=== PATIENT | female | born 1995 | race Caucasian/White ===

== ENCOUNTER 2019-08-21 13:48 | Emergency (ER) | payer OTHER, SELFPAY ==
[2019-08-21 14:00] VITALS: BP 110/67; PULSE 66; RESP 18; TEMP 37.1; O2SAT 98
--- NOTE | 2019-08-21 14:01 | ED.SKABFB ---
HPI - Skin/Abscess/Foreign Bdy General Chief complaint: Skin/Abscess/Foreign Body Stated complaint: ingrown fingernail infection Time Seen by Provider: 08/21/19 14:01 Source: patient Mode of arrival: ambulatory Limitations: no limitations History of Present Illness HPI narrative: Kaitlynn Washington is a 24 yo female with no PMH who comes to express care with pain and swelling around nail of R middle finger. Bites nails, has been swollen and painful x 2 days.Pain 08/28 Related Data Home Medications Medication Instructions Recorded Confirmed hydrocodone-acetaminophen 1 tablet PO BID 08/21/19 08/21/19 Allergies Allergy/AdvReac Type Severity Reaction Status Date / Time hydromorphone AdvReac Intermediate SEVERE Verified 08/21/19 14:07 NAUSEA AND VOMITING cephalexin AdvReac Mild Nausea and Verified 08/21/19 14:07 Vomiting Review of Systems Review of Systems: Narrative: CONSTITUTIONAL: Denies fever, chills, sweats. EYES: Denies visual changes, redness, discharge. ENT: Denies rhinorrhea, congestion, sore throat, otalgia. CARDIOVASCULAR: Denies chest pain, palpitations, edema. RESPIRATORY: Denies dyspnea, wheezing, cough GASTROINTESTINAL: Denies abdominal pain, nausea, vomiting, diarrhea. GENITOURINARY: Denies dysuria, hematuria, abnormal discharge SKIN: Denies rash or itching. swelling and pain in R middle finger NEUROLOGIC: Denies numbness, or focal weakness. PSYCHIATRIC: Denies anxiety or depression. PMFSH Family History Family History (Updated 08/21/19 @ 14:06 by Angeli Riggs CNP) Other No acute medical problems Social History Social History (Updated 08/21/19 @ 14:25 by Angeli Riggs CNP) Smoking status: Never smoker Alcohol intake: current Gender identity (if verbalized by the patient): Female Comments At time of signature, I agree with nursing past medical, surgical, social and family history. There is no relevant family history pertinent to the presenting complaint. Exam Narrative: Exam Narrative: GENERAL: This is a well-nourished, well-developed patient, in mild distress. HEAD: normocephalic, atraumatic. EYES: Sclera clear/white. Vision is grossly intact. EARS: External ears normal. Hearing grossly intact. NOSE: External nose normal without nasal discharge, nares without redness, no rhinorrhea. THROAT: Mucous membranes moist, posterior pharynx NECK: Neck supple, non-tender CARDIOVASCULAR: Regular rate and rhythm without murmurs, gallops, or rubs. RESPIRATORY: Clear to auscultation. Breath sounds equal bilaterally. No wheezes, rales, or rhonchi. GASTROINTESTINAL: Abdomen soft, non-tender, SKIN: warm, intact with no suspicious lesions or rash, good texture and turgor.swelling and pain around nail R middle finger NEURO: awake, alert, and oriented to person, place and time. There were no obvious focal neurologic abnormalities. Steady gait EXTREMITIES: Normal range of motion on R, edema and chronic pain in L BACK: Nontender without deformity Course Course Emergency Course: I&D to right middle finger laceration-started on Keflex and Zofran-backup clindamycin written prescription in case Keflex again causes nausea With prescription as written Vital Signs Vital signs: Vital Signs Temperature 98.8 F 08/21/19 14:00 Pulse Rate 66 08/21/19 14:00 Respiratory Rate 18 08/21/19 14:00 Blood Pressure 110/67 08/21/19 14:00 Pulse Oximetry 98 08/21/19 14:00 Temperature 98.8 F 08/21/19 14:00 Pulse Rate 66 08/21/19 14:00 Respiratory Rate 18 08/21/19 14:00 Blood Pressure 110/67 08/21/19 14:00 Pulse Oximetry 98 08/21/19 14:00 Procedures Abscess I/D hand: Date of Incision: 08/21/19 Time of Incision: 14:00 Side (if applicable): right Technique: needle aspiration Irrigation: Yes I&D Results: Pus Abcess I&D Additional Comments: tolerated procedure well. Dressing applied MDM - Skin/Abscess/Foreign
== END 2019-08-21 14:34 | disposition home or self-care (01) ==
PROVIDERS: Emergency Provider Nurse Practitioner
DX: L03.011 Cellulitis of right finger (principal)
CPT/HCPCS: 26010; 99213; G0463